=== PATIENT | female | born 1955 | race Caucasian/White ===

== ENCOUNTER → 2016-09-12 | Outpatient (CLI) | payer OTHER ==
[~2016-09-12] MED LIST: ALBUAER2 INH; LEVOPOW36 PO
[2016-09-12 13:03] LABS: BASO % 0.6 %; BASO ABS # 0.02 K/uL (0-0.2); COMPLETE YES; EOS % 3.6 %; HEMATOCRIT 40.3 % (37-47); IG% 0.3 %; LYMPH % 47.4 %; LYMPH ABS # 1.71 K/uL (1.2-3.4); MEAN CELL VOLUME 95.3 fL (80-100); MEAN CORPUSCULAR HGB CONC 32.5 g/dl (32-36); MEAN PLATELET VOLUME 10.5 fL (7.4-10.4); MONO % 5.3 %; NEUT % 42.8 %; PLATELET COUNT 221 K/uL (130-400); RED BLOOD COUNT 4.23 M/uL (4.2-5.4); WHITE BLOOD COUNT 3.61 K/uL (4.8-10.8)
[2016-09-12 13:09] LABS: MANUAL MICROSCOPIC REQUIRED? NO; REVIEW REQ? NO; URINE APPEARANCE CLEAR (CLEAR); URINE BILIRUBIN NEG (NEG); URINE COLOR YELLOW; URINE EPITHELIAL CELL AUTO 0-5 /lpf (0-5); URINE NITRITE NEG (NEG); URINE PH 6.5 (4.5-7.5); URINE SPECIFIC GRAVITY 1.008 (1.000-1.030); UROBILINOGEN NEG (NEG)
[2016-09-12 13:13] LABS: ALT/SGPT 27 U/L (12-78); BLOOD UREA NITROGEN 14 mg/dl (7-18); BUN/CREATININE RATIO 17.4 (10-20); CALCIUM 9.2 mg/dl (8.5-10.1); CARBON DIOXIDE 28 mmol/L (21-32); CHLORIDE 103 mmol/L (98-107); CHOLESTEROL 297 mg/dl (0-200); CREATININE 0.78 mg/dl (0.60-1.20); GLUCOSE 100 mg/dl (70-99); POTASSIUM 3.9 mmol/L (3.5-5.1); SODIUM 139 mmol/L (136-145); TRIGLYCERIDES 149 mg/dl (0-150); VERY LOW DENSITY LIPOPROT CALC 30 mg/dl
[2016-09-12 13:23] LABS: ALB/GLOB RATIO 1.1 (0.9-2); ALKALINE PHOSPHATASE 55 U/L (45-117); AST/SGOT 17 U/L (15-37); CHOLESTEROL/HDL RATIO 5.8; HDL CHOLESTEROL 51 mg/dl; LDL CHOLESTEROL CALCULATED 216 mg/dl; THYROID STIMULATING HORMONE 0.346 uIu/ml (0.300-4.500)
== END | disposition home or self-care (01) ==
LOC: C.LAB1850 11:47
PROVIDERS: ATTEND Internal Medicine Pulmonary Disease
DX: E03.9 Hypothyroidism, unspecified (principal); E78.5 Hyperlipidemia, unspecified

== ENCOUNTER → 2016-10-10 | Outpatient (CLI) | payer OTHER ==
--- NOTE | 2016-10-10 16:29 | MAMMOGRAPHY REPORT ---
BILATERAL DIGITAL SCREENING MAMMOGRAM WITH CAD: 10/10/2016 CLINICAL HISTORY: Routine screening. Patient has no complaints. TECHNIQUE: Current study was also evaluated with a Computer Aided Detection (CAD) system. Bilatera l CC and MLO views were obtained. COMPARISON: Comparison is made to exams dated: 10/06/2015 mammogram, 09/13/2014 mammogram, 08/27/2012 m ammogram, 08/30/2013 mammogram, 08/22/2011 mammogram, and 08/21/2010 mammogram - [facility] enter. BREAST COMPOSITION: There are scattered areas of fibroglandular density in both breasts. FINDINGS: No suspicious masses, calcifications, or areas of architectural distortion are noted in e ither breast. There has been no significant interval change compared to prior exams. A biopsy marke r clip is again noted in the right upper outer quadrant. Bilateral benign appearing calcifications are not significantly changed. IMPRESSION: ACR BI-RADS CATEGORY 2: BENIGN There is no mammographic evidence of malignancy. A 1 year screening mammogram is recommended. The p atient will receive written notification of the results. Approximately 10% of breast cancers are not detected with mammography. A negative mammographic repor t should not delay biopsy if a clinically suggestive mass is present. Lorna Banks M.D. ah/:10/10/2016 15:29:29 Geophysical Party Chief: Hiwot Viera M, [facility] letter sent: Normal 1/2 BI-RADS Code: ACR BI-RADS Category 2: Benign
== END | disposition home or self-care (01) ==
LOC: C.MAMM 09:26
PROVIDERS: ATTEND Obstetrics & Gynecology
DX: Z12.31 Encounter for screening mammogram for malignant neoplasm of breast (principal)

== ENCOUNTER → 2017-09-24 | Outpatient (CLI) | payer OTHER ==
[2017-09-24 10:12] LABS: BASO ABS # 0.05 K/uL (0-0.2); EOS % 4.4 %; EOS ABS # 0.22 K/uL (0-0.5); HEMATOCRIT 42.6 % (37-47); HEMOGLOBIN 13.9 g/dL (12.0-16.0); LYMPH % 30.4 %; LYMPH ABS # 1.53 K/uL (1.2-3.4); MEAN CELL VOLUME 96.4 fL (80-100); MEAN CORPUSCULAR HEMOGLOBIN 31.4 pg (25-34); MEAN CORPUSCULAR HGB CONC 32.6 g/dl (32-36); MEAN PLATELET VOLUME 9.9 fL (7.4-10.4); MONO % 5.6 %; MONO ABS # 0.28 K/uL (0.11-0.59); NEUT % 58.6 %; NEUT ABS # 2.95 K/uL (1.4-6.5); PLATELET COUNT 220 K/uL (130-400); RED CELL DISTRIBUTION WIDTH CV 13.6 % (11.5-14.5); RED CELL DISTRIBUTION WIDTH SD 48.3 fL (36.4-46.3); WHITE BLOOD COUNT 5.03 K/uL (4.8-10.8)
[2017-09-24 10:55] LABS: ALBUMIN 4.1 gm/dl (3.4-5.0); ALKALINE PHOSPHATASE 56 U/L (45-117); ALT/SGPT 33 U/L (12-78); AST/SGOT 22 U/L (15-37); BLOOD UREA NITROGEN 19 mg/dl (7-18); CALCIUM 9.5 mg/dl (8.5-10.1); CARBON DIOXIDE 25 mmol/L (21-32); CREATININE 0.84 mg/dl (0.60-1.20); GLUCOSE 100 mg/dl (70-99); POTASSIUM 4.1 mmol/L (3.5-5.1); SODIUM 139 mmol/L (136-145); TOTAL PROTEIN 8.2 gm/dl (6.4-8.2)
[2017-09-24 11:06] LABS: CHOLESTEROL 198 mg/dl (0-200); LDL CHOLESTEROL CALCULATED 112 mg/dl
== END | disposition home or self-care (01) ==
LOC: C.LAB1850 09:23
PROVIDERS: ATTEND Internal Medicine Pulmonary Disease
DX: E78.5 Hyperlipidemia, unspecified (principal); E03.9 Hypothyroidism, unspecified; N39.46 Mixed incontinence

== ENCOUNTER → 2017-11-12 | Outpatient (CLI) | payer OTHER ==
--- NOTE | 2017-11-12 15:25 | MAMMOGRAPHY REPORT ---
BILATERAL DIGITAL SCREENING MAMMOGRAM TOMOSYNTHESIS WITH CAD: 11/12/2017 CLINICAL HISTORY: Routine screening. Patient has no complaints. TECHNIQUE: Breast tomosynthesis in addition to standard 2D mammography was performed. Current study was also evaluated with a Computer Aided Detection (CAD) system. COMPARISON: Comparison is made to exams dated: 10/10/2016 mammogram, 10/06/2015 mammogram, 09/13/2014 ma mmogram, 08/30/2013 mammogram, 08/27/2012 mammogram, and 08/22/2011 mammogram - [facility]. BREAST COMPOSITION: There are scattered areas of fibroglandular density in both breasts. FINDINGS: No suspicious masses, calcifications, or areas of architectural distortion are noted in ei ther breast. There has been no significant interval change compared to prior exams. A biopsy marker clip is again noted in the right upper outer quadrant. Bilateral benign appearing calcifications are not significantly changed. IMPRESSION: ACR BI-RADS CATEGORY 2: BENIGN There is no mammographic evidence of malignancy. A 1 year screening mammogram is recommended. The pa tient will receive written notification of the results. Approximately 10% of breast cancers are not detected with mammography. A negative mammographic report should not delay biopsy if a clinically suggestive mass is present. Lorna Banks M.D. ah/:11/12/2017 12:21:40 Property Claims Manager: Mary Ann MURPHY)([place]), [facility] letter sent: Normal 1/2 BI-RADS Code: ACR BI-RADS Category 2: Benign
== END | disposition home or self-care (01) ==
LOC: C.MAMM 11:57
PROVIDERS: ATTEND Internal Medicine Pulmonary Disease
DX: Z12.31 Encounter for screening mammogram for malignant neoplasm of breast (principal)